=== PATIENT | female | born 2000 | race Caucasian/White ===

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

== ENCOUNTER 2018-03-09 17:52 | Emergency (ER) | payer MEDICAID ==
--- NOTE | 2018-03-09 18:06 | EDPHY ---
General Time Seen by Provider: 03/09/18 17:59 Narrative: CHIEF COMPLAINT: Left upper quadrant abdominal pain HISTORY OF PRESENT ILLNESS: Patient complains of 3-4 hours of left upper quadrant abdominal pain. Gradual onset. Constant duration. [id number], 3/10 at rest. Moderate to severe with palpation. No nausea or vomiting. No fever chills. No trauma. No urinary discomfort or gross hematuria. No back pain. No radiating plain. She does have a reported diagnosis of splenomegaly at [facility] does done clinically in the past 2 weeks. She was also told she has mono, but has no complaints consistent with this. She has no history of abdominal surgery. No other associated complaints or modifying factors. Last menstrual period: 3-4 weeks ago. Irregular menses REVIEW OF SYSTEMS: Ten systems reviewed and are negative unless otherwise noted in the HPI PCP: [facility] SPECIALISTS: None PAST MEDICAL HISTORY: Asthma PAST SURGICAL HISTORY: No abdominal surgical history SOCIAL HISTORY: Nonsmoker. [employer] student. Originally from [place] FAMILY HISTORY: Noncontributory EXAMINATION General Appearance: Alert, no distress Head: normocephalic, atraumatic Eyes: Pupils equal and round, no conjunctival pallor or injection ENT, Mouth: Mucous membranes moist Neck: Normal inspection, supple, non-tender. No supraclavicular lymphadenopathy. Respiratory: Lungs are clear to auscultation. No wheezing rhonchi or crackles. Cardiovascular: Regular rate and rhythm. No murmur Gastrointestinal: Abdomen is soft and nondistended. Mild tenderness in left upper quadrant. Mild splenomegaly. No hepatomegaly. No rebound. No guarding. No tympany. No rigidity. No CVA tenderness. Back: non-tender, no bony abnormalities Neurological: A&O, nonfocal, normal gait Skin: Warm and dry, no rash. No petechiae or purpura Extremities: Nontender, no pedal edema Psychiatric: Mood and affect normal DIFFERENTIAL DIAGNOSES: Including but not limited to splenomegaly, viral illness, acute abdominal pain, colitis, diverticulitis, UTI, renal colic MDM: 6:05 p.m. Left upper quadrant abdominal pain of 3-4 hours. Abdominal exam is benign. Vital signs are within normal limits. There is mild splenomegaly appreciated. No CVA tenderness. Patient reports she was diagnosed clinically with splenomegaly at [facility], as well as a positive mono test. She has no is sore throat. No chest pain. No shortness of breath. I have ordered laboratory studies but no imaging at this time. She is in no acute distress. 6:40 p.m. Patient re-evaluated. CBC and chemistry unremarkable. Urinalysis pending. She still has mild abdominal pain. Abdominal exam remains benign. 6:50 p.m. Patient re-evaluated. Urinalysis unremarkable with only 1+ bacteria. I have ordered a urine culture. She has minimal pain at this time. She is comfortable with being discharged home without imaging. I do feel this is reasonable at this time. I stressed the importance of return to emergency depart precautions including fever, chills, vomiting or sudden increase in pain. I also would like her to return here or to be seen at [facility] at tomorrow morning as she does not have complete resolution of her symptoms. She is comfortable this as well. I discussed the case with Dr. Armando. SUPERVISION: Patient was independently examined, but I discussed the case with my secondary supervising physician Dr. Armando - History Smoking Status: Never smoked - Objective Vital Signs: Initial Vital Signs Temperature (C) 97.5 F 03/09/18 17:52 Heart Rate 86 03/09/18 17:52 Respiratory Rate 16 03/09/18 17:52 Blood Pressure 140/68 H 03/09/18 17:52 O2 Sat (%) 100 03/09/18 17:52 O2 Delivery Mode Room Air Allergies/Adverse Reactions: Sulfa (Sulfonamide Antibiotics) Allergy (Verified 03/26/17 18:42) Hives Home Medications: Medication Instructions Recorded Arm Implant Control 05/27/17 Eszopiclone 03/09/18 Gabapentin 03/09/18 Lamictal 03/09/18 Laboratory Results: Laboratory Results 03/09/18 18:12 03/09/18 18:12 03/09/18 03/09/18 03/09/18 18:30 18:12 18:12 WBC RBC Hgb Hct MCV MCH MCHC RDW Plt Count MPV Neut % (Auto) Lymph % (Auto) [place] % (Auto) Eos % (Auto) Baso % (Auto) Nucleat RBC Rel Count Absolute Neuts (auto) Absolute Lymphs (auto) Absolute Monos (auto) Absolute Eos (auto) Absolute Basos (auto) Absolute Nucleated RBC Immature Gran % Immature Gran # Sodium 139 mEq/L mEq/L (135-145) Potassium 4.2 mEq/L mEq/L (3.5-5.2) Chloride 103 mEq/L mEq/L (97-110) Carbon Dioxide 23 mEq/l mEq/l (22-31) Anion Gap 13 mEq/L mEq/L (8-16) BUN 8 mg/dL mg/dL (7-23) Creatinine 0.7 mg/dL mg/dL (0.6-1.0) Estimated GFR > 60 Glucose 87 mg/dL mg/dL (70-100) Calcium 9.1 mg/dL mg/dL (8.5-10.4) Total Bilirubin 0.6 mg/dL mg/dL (0.1-1.4) Conjugated Bilirubin 0.4 mg/dL mg/dL (0.0-0.5) Unconjugated Bilirubin 0.2 mg/dL mg/dL (0.0-1.1) AST 18 IU/L IU/L (14-46) ALT 30 IU/L IU/L (9-52) Alkaline Phosphatase 22 IU/L L IU/L (38-126) Total Protein 6.7 g/dL g/dL (6.3-8.2) Albumin 4.1 g/dL g/dL (3.5-5.0) Lipase 264 IU/L IU/L (23-300) Beta HCG, Qual NEGATIVE Urine Color YELLOW Urine Appearance MODERATELY TURBID Urine pH 7.0 (5.0-7.5) Ur Specific [place] 1.015 (1.002-1.030) Urine Protein NEGATIVE (NEGATIVE) Urine Ketones NEGATIVE (NEGATIVE) Urine Blood NEGATIVE (NEGATIVE) Urine Nitrate NEGATIVE (NEGATIVE) Urine Bilirubin NEGATIVE (NEGATIVE) Urine Urobilinogen 2.0 EU H EU (0.2-1.0) Ur Leukocyte Esterase NEGATIVE (NEGATIVE) Urine RBC 1-3 /hpf /hpf (0-3) Urine WBC 1-3 /hpf /hpf (0-3) Ur Epithelial Cells TRACE /lpf /lpf (NONE-1+) Urine Bacteria 1+ /hpf H /hpf (NONE SEEN) Urine Mucus TRACE /lpf /lpf (NONE-1+) Urine Glucose NEGATIVE (NEGATIVE) 03/09/18 18:12 WBC 6.12 10^3/uL 10^3/uL (3.80-9.50) RBC 4.21 10^6/uL 10^6/uL (4.18-5.33) Hgb 11.4 g/dL L g/dL (12.6-16.3) Hct 35.8 % L % (38.0-47.0) MCV 85.0 fL fL (81.5-99.8) MCH 27.1 pg L pg (27.9-34.1) MCHC 31.8 g/dL L g/dL (32.4-36.7) RDW 14.0 % % (11.5-15.2) Plt Count 195 10^3/uL 10^3/uL (150-400) MPV 10.7 fL fL (8.7-11.7) Neut % (Auto) 63.1 % % (39.3-74.2) Lymph % (Auto) 24.3 % % (15.0-45.0) [place] % (Auto) 10.0 % % (4.5-13.0) Eos % (Auto) 1.3 % % (0.6-7.6) Baso % (Auto) 0.8 % % (0.3-1.7) Nucleat RBC Rel Count 0.0 % % (0.0-0.2) Absolute Neuts (auto) 3.86 10^3/uL 10^3/uL (1.70-6.50) Absolute Lymphs (auto) 1.49 10^3/uL 10^3/uL (1.00-3.00) Absolute Monos (auto) 0.61 10^3/uL 10^3/uL (0.30-0.80) Absolute Eos (auto) 0.08 10^3/uL 10^3/uL (0.03-0.40) Absolute Basos (auto) 0.05 10^3/uL 10^3/uL (0.02-0.10) Absolute Nucleated RBC 0.00 10^3/uL 10^3/uL (0-0.01) Immature Gran % 0.5 % % (0.0-1.1) Immature Gran # 0.03 10^3/uL 10^3/uL (0.00-0.10) Sodium Potassium Chloride Carbon Dioxide Anion Gap BUN Creatinine Estimated GFR Glucose Calcium Total Bilirubin Conjugated Bilirubin Unconjugated Bilirubin AST ALT Alkaline Phosphatase Total Protein Albumin Lipase Beta HCG, Qual Urine Color Urine Appearance Urine pH Ur Specific [place] Urine Protein Urine Ketones Urine Blood Urine Nitrate Urine Bilirubin Urine Urobilinogen Ur Leukocyte Esterase Urine RBC Urine WBC Ur Epithelial Cells Urine Bacteria Urine Mucus Urine Glucose Departure - Departure Disposition: Home, Routine, Self-Care Clinical Impression: Abdominal pain, left upper quadrant, Splenomegaly Condition: Good Instructions: Acute Abdominal Pain (DC) Additional Instructions: 1. Contact [facility] at Saturday morning to be seen on Saturday for repeat examination 2. Return to the emergency department if her pain is not 100% resolved tomorrow morning 3. Return to emergency department for any worsening pain, nausea, vomiting, fever, chills Referrals: [facility],. [Clinic] - As per Instructions
[2018-03-09 18:24] LABS: PLATELET COUNT 195 10^3/uL (150-400)
[2018-03-09 19:02] VITALS: BP 121/64
== END 2018-03-09 19:02 | disposition home or self-care (01) ==
DX: R16.1 Splenomegaly, not elsewhere classified (principal)

== ENCOUNTER 2018-03-13 13:25 | Emergency (ER) | payer MEDICAID ==
--- NOTE | 2018-03-13 13:44 | EDPHY ---
HPI/HX/ROS/PE/MDM Narrative: CHIEF COMPLAINT: Pain under left side of ribs HISTORY OF PRESENT ILLNESS: The patient is 17 y/o female with a history of scoliosis complaining pain in the left upper quadrant, under her left-sided ribs, onset Saturday, 4 days ago. She was here on Saturday, 4 days ago, for similar symptoms, had a reassuring examination laboratory evaluation, was discharged home. She followed up the next day at [facility] and have x-ray's preformed which only revealed mild constipation. She took some laxatives which did not alleviate the pain. Since these visits, her symptoms have worsened and she is having an abnormal feeling in her stomach like there are "butterflies" associated with a racing heart when her pain is throbbing. The pain is aggravated when there is pressure on her left ribs/abdomen and when she moves in certain positions. Smokes marijuana daily, although she has not smoked today. Denies illicit drug use. Denies abdominal surgeries, leg swelling, rash or travel outside of the [facility]. No pleuritic component. No cough or cold symptoms. No fevers or chills. No vomiting, nausea, or diarrhea. No headache or lightheadedness. No fever. REVIEW OF SYSTEMS: Aside from elements discussed in the HPI, a comprehensive 10-point review of systems was reviewed and is negative. PAST MEDICAL HISTORY: Scoliosis, depression, anxiety, bipolar SOCIAL HISTORY: Student at studying psychology and education, originally from [place] VITAL SIGNS: Reviewed by me GENERAL: Well-developed, well-nourished, resting comfortably in no respiratory distress. HEENT: Atraumatic. Eyes: No icterus, no injection. Mouth: pale lips and mucous membranes. No erythema or lesions. Neck: supple with no adenopathy. LUNGS: Clear to auscultation bilaterally, no wheezes, rhonchi or rales. CARDIAC: Regular rate and rhythm, no rubs, murmurs or gallops. ABDOMEN: LUQ and mild epigastric tenderness with voluntary guarding. Soft, nondistended, bowel sounds normal, no pulsatile mass. BACK: No CVA tenderness. EXTREMITIES: No trauma. No edema. Range of motion is normal throughout. NEURO: Alert and oriented, grossly nonfocal. SKIN: Warm and dry, no rash. PSYCHIATRIC: Normal mentation, no agitation. Portions of this note were transcribed by a expert medical writer. I personally performed a history, physical exam, medical decision making, and confirmed accuracy of information the transcribed note. ED Course: The patient is 17 y/o female with a history of scoliosis presenting with LUQ pain onset Saturday, 4 days ago. On exam she has significant LUQ and epigastric tenderness with voluntary guarding. She also has pale lips and mucous membranes. 1L IV NS given. Abdominal CT ordered. Laboratory evaluation: Stable hemoglobin and hematocrit. Normal platelets. Normal liver function tests. Normal lipase. Negative D-dimer. 1511: Spoke with radiologist, no clear cause of the patient's discomfort on CT scan. Patient's spleen is at the upper limit of normal in size with some increased flow, which may be simple contrast flow. Lower lungs are clear. No constipation. No bowel obstruction. No definitive cause of the patient's pain identified. Patient certainly does require follow-up for her slight splenomegaly. I do not believe patient needs further evaluation at this point in the emergency department nor admission to the hospital. I held a long discussion with the patient regarding her presentation and the findings in the emergency department. She does understand that close follow-up is required. 1605: 30mg IV Toradol given for mild pain. I have also prescribed her Harmon for severe pain. Return precautions provided; patient is comfortable with this plan. MDM: After obtaining the patient's history and performing an examination, differential diagnosis considered included but was not limited to kidney stone, splenomegaly, splenic infarct, hematology disease, pancreatitis, constipation, urinary tract infection. - Data Points Imaging Results: Imaging Impressions Abdomen CT 03/13/18 14:11 Impression: 1. Spleen upper normal in size with no acute findings. 2. Additional findings as above. Findings discussed with Olga Garcia MD, 03/13/2018 at 15:11. Imaging: Discussed imaging studies w/ tripoler Radiologist Laboratory Results: Laboratory Results 03/13/18 14:15 03/13/18 14:15 03/13/18 03/13/18 03/13/18 14:15 14:15 14:15 WBC 5.01 10^3/uL 10^3/uL (3.80-9.50) RBC 4.33 10^6/uL 10^6/uL (4.18-5.33) Hgb 11.8 g/dL L g/dL (12.6-16.3) Hct 36.3 % L % (38.0-47.0) MCV 83.8 fL fL (81.5-99.8) MCH 27.3 pg L pg (27.9-34.1) MCHC 32.5 g/dL g/dL (32.4-36.7) RDW 14.0 % % (11.5-15.2) Plt Count 201 10^3/uL 10^3/uL (150-400) MPV 10.6 fL fL (8.7-11.7) Neut % (Auto) 60.3 % % (39.3-74.2) Lymph % (Auto) 28.5 % % (15.0-45.0) [place] % (Auto) 9.4 % % (4.5-13.0) Eos % (Auto) 1.0 % % (0.6-7.6) Baso % (Auto) 0.6 % % (0.3-1.7) Nucleat RBC Rel Count 0.0 % % (0.0-0.2) Absolute Neuts (auto) 3.02 10^3/uL 10^3/uL (1.70-6.50) Absolute Lymphs (auto) 1.43 10^3/uL 10^3/uL (1.00-3.00) Absolute Monos (auto) 0.47 10^3/uL 10^3/uL (0.30-0.80) Absolute Eos (auto) 0.05 10^3/uL 10^3/uL (0.03-0.40) Absolute Basos (auto) 0.03 10^3/uL 10^3/uL (0.02-0.10) Absolute Nucleated RBC 0.00 10^3/uL 10^3/uL (0-0.01) Immature Gran % 0.2 % % (0.0-1.1) Immature Gran # 0.01 10^3/uL 10^3/uL (0.00-0.10) Sodium 142 mEq/L mEq/L (135-145) Potassium 3.9 mEq/L mEq/L (3.5-5.2) Chloride 105 mEq/L mEq/L (97-110) Carbon Dioxide 23 mEq/l mEq/l (22-31) Anion Gap 14 mEq/L mEq/L (8-16) BUN 10 mg/dL mg/dL (7-23) Creatinine 0.7 mg/dL mg/dL (0.6-1.0) Estimated GFR > 60 Glucose 69 mg/dL L mg/dL (70-100) Calcium 9.3 mg/dL mg/dL (8.5-10.4) Total Bilirubin 0.9 mg/dL mg/dL (0.1-1.4) Conjugated Bilirubin 0.4 mg/dL mg/dL (0.0-0.5) Unconjugated Bilirubin 0.5 mg/dL mg/dL (0.0-1.1) AST 22 IU/L IU/L (14-46) ALT 29 IU/L IU/L (9-52) Alkaline Phosphatase 25 IU/L L IU/L (38-126) Total Protein 7.2 g/dL g/dL (6.3-8.2) Albumin 4.5 g/dL g/dL (3.5-5.0) Lipase 210 IU/L IU/L (23-300) Beta HCG, Qual NEGATIVE Medications Given: Discontinued Medications Sodium Chloride (Ns) 1,000 mls @ 0 mls/hr IV EDNOW ONE; Wide Open PRN Reason: Protocol Stop: 03/13/18 14:12 Last Admin: 03/13/18 14:19 Dose: 1,000 mls General Time Seen by Provider: 03/13/18 13:38 Initial Vital Signs: Initial Vital Signs Temperature (C) 36.6 C 03/13/18 13:27 Heart Rate 86 03/13/18 13:27 Respiratory Rate 18 03/13/18 13:27 Blood Pressure 122/74 H 03/13/18 13:27 O2 Sat (%) 98 03/13/18 13:27 O2 Delivery Mode Room Air Allergies/Adverse Reactions: Sulfa (Sulfonamide Antibiotics) Allergy (Verified 03/13/18 13:27) Hives Home Medications: Medication Instructions Recorded Arm Implant Control 05/27/17 Eszopiclone 03/09/18 Gabapentin 03/09/18 Lamictal 03/09/18 Hydrocodone/APAP 5/325 [Harmon 1 tab PO Q6H PRN #10 tab 03/13/18 5/325 (RX)] Departure - Departure Disposition: Home, Routine, Self-Care Clinical Impression: Abdominal pain Condition: Good Instructions: Acute Abdominal Pain (ED), Abdominal Pain (ED) Additional Instructions: Use ibuprofen 600 mg every 6-8 hours on a regular basis to provide pain relief and anti-inflammatory effects. Okay to use Harmon as needed for severe pain. Follow up with your primary care physician in the next week; you have been referred to Dr. Ansari. Follow up with gastroenterology in the next week; you have been referred to Dr. Olson. Return to the emergency department for fever, worsening pain, shortness of breath or difficulty breathing, abdominal pain, blood in urine or other concerns. Referrals: Bre Olson MD [Medical Doctor] - As per Instructions Roro Ansair MD [Medical Doctor] - As per Instructions Prescriptions: Hydrocodone/APAP 5/325 [Harmon 5/325 (RX)] 1 tab PO Q6H PRN #10 tab PRN Reason: Pain Report Scribed for: Olga Garcia Report Scribed by: Maryanne Hilton Date of Report: 03/13/18 Time of Report: 13:44
[2018-03-13] MEDS ORDERED: NS 1,000 ML IV ONE (14:11)
[2018-03-13 14:27] LABS: PLATELET COUNT 201 10^3/uL (150-400)
[2018-03-13] MEDS ORDERED: IOPAMIDOL (ISOVUE-300) 100 ML BTL ONE (14:28)
[2018-03-13] MEDS ORDERED: KETOROLAC 30 MG/1 ML SDV IVP ONE (16:01)
[2018-03-13 16:47] VITALS: BP 118/63
== END 2018-03-13 16:47 | disposition home or self-care (01) ==
DX: R10.12 Left upper quadrant pain (principal); E86.9 Volume depletion, unspecified
CPT/HCPCS: Q9967